=== PATIENT | male | born 1995 | race Caucasian/White ===

== ENCOUNTER 2016-08-21 12:07 | Emergency (ER) | payer BC, OTHER, SELFPAY ==
[~2016-08-21] VITALS: Ht 180.3 cm; Wt 79.4 kg
[2016-08-21 13:34] VITALS: BP 156/67
[2016-08-21] MEDS ORDERED: FLUORESCEIN OPHTH 1 MG STRIP OS ONE (14:30)
--- NOTE | 2016-08-21 15:06 | ED PDOC ---
Post-Departure Follow-Up DR DE LEON CONSULTED ON THIS PT. ADVISED TO HAVE PT SEEN IN THE OFFICE. 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 ADVISED IF PT WILLING TO BE SELF-PAY, HE IS MORE THAN WELCOME AT THEIR OFFICE. OTHERWISE, WE SHOULD CONTACT [facility] TO SCHEDULE APPT FOR THIS PT. SPOKE WITH PT AND PT STATED HE CANNOT AFFORD TO BE SELF-PAY AND WOULD PREFER THE OTHER OFFICE. CALLING [facility] AT THIS TIME TO SPEAK WITH OFFICE STAFF TO GET APPT FOR THIS PT. MACY JOHNSON PA-C August 21, 2016 15:06
== END 2016-08-21 15:45 | disposition home or self-care (01) ==
LOC: M ED 14:16
DX: H54.7 Unspecified visual loss (principal); F17.200 Nicotine dependence, unspecified, uncomplicated; Z96.22 Myringotomy tube(s) status; Z88.1 Allergy status to other antibiotic agents

== ENCOUNTER 2018-06-11 13:34 | Emergency (ER) | payer SELFPAY ==
[~2018-06-11] VITALS: Ht 182.9 cm; Wt 68.2 kg
[2018-06-11 13:52] VITALS: BP 117/68
== END 2018-06-11 14:35 | disposition left against medical advice (07) ==
LOC: M ED 13:34
DX: Z53.21 Procedure and treatment not carried out due to patient leaving prior to being seen by health care provider (principal)